=== PATIENT | female | born 1980 | race Caucasian/White ===

== ENCOUNTER → 2020-11-26 | Outpatient (CLI) | payer OTHER ==
[~2020-11-26] MED LIST: CEPH-368 PO; CYCL10TA2 PO; Muscle Relaxer; OMEP-110 PO; OXYC1TAB14 PO; SERT100T32 PO
== END | disposition home or self-care (01) ==
LOC: CFH 09:00
DX: D48.62 Neoplasm of uncertain behavior of left breast (principal)
CPT/HCPCS: 76642; 77065